=== PATIENT | female | born 1960 | race Hispanic/Latino ===

== ENCOUNTER 2016-09-15 22:15 | Emergency (ER) | payer OTHER ==
[~2016-09-15] VITALS: Ht 154.9 cm; Wt 70.3 kg
[~2016-09-15 22:15] MED LIST: ANTIVERT 25MG #1 PAC PO; CARISOPRODOL350 MG PO; CELEBREX200 MG PO; CLONAZEPAM0.5 MG PO; FIORINAL W/CODE1 CAP PO; GABAPENTIN300 MG PO; HYDROXYCHLOROQ200 M1 PO; MS CONTIN15 M1 PO; NEURONTIN300 MG PO; OXYCONTIN20 MG PO; PERCOCET 325 MG1 TA3 PO; PERCOCET 325 MG1 TAB PO; PREDNISONE 20MG20 MG PO; SYNTHROID0.137 MG PO; ZITHROMAX Z-PA250 M1 PO; ZOFRAN4 M1 SL
--- NOTE | 2016-09-16 01:14 | ED HAND/WRIST INJURY COMPLAINT ---
History of Present Illness General Chief Complaint: General Adult Stated Complaint: MULIT COMPLAINTS Source: patient Exam Limitations: no limitations Vital Signs & Intake/Output Vital Signs & Intake/Output Vital Signs Date Time Temp Pulse Resp B/P B/P Pulse O2 O2 Flow FiO2 Mean Ox Delivery Rate 09/16 0100 97.3 85 18 138/63 96 09/15 2259 98.3 99 18 141/84 99 Room Air ED Intake and Output 09/16 0000 09/15 1200 Intake Total Output Total Balance Patient 155 lb Weight Weight Reported by Patient Measurement Method Allergies Coded Allergies: NO KNOWN ALLERGIES (06/20/15) No Known Drug Allergies (06/20/15) Reconcile Medications Aspirin/Butalbital/Caffeine/ (Fiorinal W/Codeine 325 MG-50 MG-40 MG-30 MG) 1 CAP CAP 1 CAP PO PRN HEADACHE (Reported) Azithromycin (Zithromax Z-Kaiser) 250 MG CAP 1 DP PO AD SINUS 2 the first day followed by 1 for days 2-5 Carisoprodol 350 MG TABLET 1 TAB PO BID PRN PAIN (Reported) Celecoxib (Celebrex) 200 MG CAP 1 CAP PO DAILY PAIN (Reported) Clonazepam 0.5 MG TAB 1 TAB PO DAILY PRN RESTLESS LEGS (Reported) Gabapentin 300 MG CAPSULE 1 CAP PO TID NEUROPATHY (Reported) Hydroxychloroquine Sulfate 200 MG TABLET 1 TAB PO BID LUPUS (Reported) Levothyroxine Sodium (Synthroid) 0.137 MG TAB 1 TAB PO DAILY AC THYROID ( Reported) Meclizine (Antivert) 25 MG PAC 1 TAB PO Q6P PRN VERTIGO Meclizine (Antivert) 25 MG PAC 1-2 TAB PO TID PRN DIZZINESS Morphine Sulfate (Ms Contin) [address] 1 TAB PO BID PAIN (Reported) Ondansetron (Zofran Odt) 4 MG ODT 1 TAB SL TID PRN NAUSEA OXYCODONE HCL/ACETAMINOPHEN (Percocet 10-325 MG Tablet) 325 MG/10 MG TAB 1 TAB PO Q8 PRN PAIN Triage Note: PT TO TRIAGE WITH C/O SWELLING AND PAIN TO LEFT WRIST SINCE THIS MORNING. NO KNOWN INJURY. ALSO PT ON ABX FOR WOUND TO R WRIST AND REQUESTING WOUND CHECK.ALSO PT C/O BILAT LE CRAMPS SINCE THIS MORNING AND ABD PAIN AND NAUSEA SINCE YESTERDAY. DENIES CHEST PAIN,SOB,N/V/D,URINARY S/S. HX OF FYBROMIALGIA, LUPUS,HTN,HYPOTHYROID. Triage Nurses Notes Reviewed? yes HPI: Patient presents for evaluation of left wrist and left index finger pain that began upon awakening at 10:00 this morning. Patient states the pain is water to severe constant and worse with palpation and movement. There has been redness and swelling of the left index finger. Patient states that she has had a prior episode similar to this last year and was seen by an denture contour wire specialist and hand specialist. She states they felt it was secondary to fibromyalgia and ruled out carpal tunnel syndrome. In addition the patient states that she is beginning to get the similar symptoms in her right wrist and has also been getting spasms in the backs of both knees. She denies any associated fever or cold symptoms. Past medical history is pertinent for lupus, fibromyalgia, Adolph thyroiditis and Sjogren disease. In addition she also has chronic neck and back pain and has had prior spine surgery. Past History Travel History Traveled to [place] past 21 day No Medical History Any Pertinent Medical History? see below for history Neurological: NONE EENT: NONE Cardiovascular: hypertension Respiratory: NONE Gastrointestinal: NONE Hepatic: NONE Renal: NONE Musculoskeletal: fibromyalgia, BACK AND NECK SURGERY Psychiatric: NONE Endocrine: hypothyroidism, LUPUS Blood Disorders: LUPUS History of CDIFF: No Surgical History Surgical History: BACK AND NECK SURGERY Psychosocial History What is your primary language Citizen Of [place] Tobacco Use: Current Daily Use Daily Tobacco Use Amount/Type: => 5 Cigarettes daily Family History Hx Contributory? No Review of Systems Review of Systems Constitutional: Reports: no symptoms. EENTM: Reports: no symptoms. Respiratory: Reports: no symptoms. Cardiovascular: Reports: no symptoms. GI: Reports: no symptoms. Genitourinary: Reports: no symptoms. Musculoskeletal: Reports: see HPI. Skin: Reports: see HPI. Neurological/Psychological: Reports: no symptoms. Hematologic/Endocrine: Reports: no symptoms. Immunologic/Allergic: Reports: no symptoms. All Other Systems: Reviewed and Negative Physical Exam Physical Exam Hand Left: see below Hand Right: see below Comments: Gen.: Well-nourished, well-developed, no acute respiratory distress. Head: Normocephalic, atraumatic. Eyes: Normal inspection bilaterally Ears: Normal inspection bilaterally Nose: Normal inspection, nasal cannula in place Throat/mouth : Moist mucosa Neck: Supple, full range of motion, no goiter Heart: Regular rate and rhythm Lungs: Quiet respirations Back: Normal range of motion Extremities: Left hand and wrist: Erythema with mild warmth and soft tissue swelling of the left index finger (proximal middle phalanx) with tenderness to palpation and decreased range of motion. There are 2 faint areas of dark discoloration/ecchymoses over the radial aspect of the left wrist with decreased range of motion secondary to pain. Left hand is neurovascularly intact. Right hand: Normal evaluation, right wrist: Abrasion of the flexor crease (patient states she lifted an air conditioner and scratched herself a few days ago), ecchymoses of the flexor aspect of the right wrist with minimal decrease in range of motion. The right hand is neurovascularly intact. Neurologic: Cranial nerves grossly intact, speech is clear Skin: warm and dry Psychiatric: Calm, cooperative, no apparent delusions or hallucinations Progress Differential Diagnosis: cellulitis, contusion, fracture, gout, septic arthritis, sprain, tenosynovitis Plan of Care: Orders Procedure Date/time Status TOTAL TRIODOTHYROXINE 09/16 136 Complete FREE T4 09/16 136 Complete URIC ACID 09/16 113 Complete TSH REFLEX 09/16 113 Complete PROTHROMBIN TIME 09/16 113 Complete WESTERGREN SED RATE 09/16 113 Complete CBC WITHOUT DIFFERENTIAL 09/16 113 Complete BASIC METABOLIC PANEL 09/16 113 Complete Laboratory Tests 09/16/16 0137: Anion Gap 10, Estimated GFR > 60, BUN/Creatinine Ratio 15.7, Glucose 103 H, Uric Acid 3.0, Calcium 8.9, Free T4 1.66, Total T3 0.94 L, TSH &T3 &Free T4 Intrp 0.112 L, PT 11.2, INR 1.07, CBC w Diff NO MAN DIFF REQ, RBC 4.63, MCV 84.6, MCH 29.3, RDW 13.5, MPV 11.0 H, Gran % 67.3, Lymphocytes % 25.7, Monocytes % 5.8, Eosinophils % 0.9, Basophils % 0.3, Absolute Granulocytes 4.3, Absolute Lymphocytes 1.6, Absolute Monocytes 0.4, Absolute Eosinophils 0.1, Absolute Basophils 0, PUBS MCHC 34.6, ESR Westergren 6 Diagnostic Imaging: Discussed w/RAD: Radiology Read. Radiology Impression: PATIENT: BETI FAIRCHILD PRESENT AGE: 56 PATIENT ACCOUNT NO: [id number] : 61 LOCATION: [facility] ORDERING PHYSICIAN: GREG HUBER MD SERVICE DATE: 09/16/16 EXAM TYPE: RAD - XRY-HAND, LEFT; XRY-WRIST COMPLETE-LEFT EXAMINATION: 3 VIEWS OF THE LEFT HAND AND 3 VIEWS OF THE LEFT WRIST CLINICAL INFORMATION: Soft tissue swelling and tenderness of the index finger. Ecchymosis of the anterior wrist COMPARISON : None available FINDINGS: Left hand: No fracture. Bony articulations are maintained. No radiopaque foreign bodies are identified. Soft tissue swelling involving the second digit. Left wrist: No fracture. Bony articulations are maintained. No radiopaque foreign bodies. IMPRESSION: Soft tissue swelling involving the second digit. No acute osseous findings involving the left hand or the left wrist. DICTATED BY: GREG WIGGINS MD DATE/TIME DICTATED:09/16/16228 MEDICAL PHYSICS TEACHER:HOME DATE/TIME TRANSCRIBED:09/16/16228 CONFIDENTIAL, DO NOT COPY WITHOUT APPROPRIATE AUTHORIZATION. <Electronically signed in Other Vendor System> SIGNED BY: GREG WIGGINS MD 09/16/16 0236 Comments: 09/16/2016 3:46:08 AM I have updated Beti on her test results. I doubt gout given the negative uric acid level. I doubt arthritis or other significant inflammatory process given the normal white blood cell count and erythrocyte sedimentation rate. Patient is afebrile, suggesting against an acute infectious process, however, I feel be prudent given the swelling and redness to go over this patient for a possible cellulitis. She was nontender over the flexor tendon so I doubt flexor tinea synovitis. Departure Departure Disposition: HOME OR SELF CARE Condition: Stable Clinical Impression Primary Impression: Cellulitis of finger of left hand Referrals: URIEL DEMARCO MD (PCP/Family) Additional Instructions: Keflex and Bactrim as prescribed. Use the finger splint as needed. Follow-up with your primary care doctor for reevaluation within 48-72 hours. Return if any concerns or sudden worsening. Please note that there might be incidental findings in your evaluation that are unrelated to the current emergency department visit. Please notify your primary care doctor about this emergency department visit in order to obtain and review all of the testing performed so that these incidental findings can be monitored as needed. If you had an x-ray performed, please understand that some fractures may not be seen on the initial set of x-rays. If your symptoms persist you might need a repeat set of x-rays to check for such a fracture. If you had a laceration evaluated, please understand that foreign bodies such as glass or wood may not be visible to the naked eye or on plain x-rays. If the wound becomes red, swollen, increasingly more painful or if there is any drainage from the wound, please have it reevaluated by a physician for the possibility of a retained foreign body. Thank you for choosing the [facility] Emergency Department for your care. It was a pleasure to serve you today. Greg Huber M.D. [facility] Departure Forms: Customer Survey General Discharge Information Prescriptions: Current Visit Scripts Cephalexin 1 CAP PO Q6 #40 CAP Sulfamethoxazole/Trimethoprim (Bactrim Ds Tablet) 1 TAB PO BID #20 TAB
[2016-09-16 01:47] LABS: ABSOLUTE BASOPHIL COUNT 0 /CUMM (0.0-0.2); ABSOLUTE EOSINOPHIL COUNT 0.1 /CUMM (0.0-0.7); ABSOLUTE GRANULOCYTE CT 4.3 /CUMM (1.4-6.5); ABSOLUTE LYMPH COUNT 1.6 /CUMM (1.2-3.4); ABSOLUTE MONOCYTE COUNT 0.4 /CUMM (0.10-0.60); BASOPHIL % 0.3 % (0.0-2.0); EOSINOPHIL % 0.9 % (0-5); GRANULOCYTE % 67.3 % (42.2-75.2); HEMATOCRIT 39.2 % (37-47); MEAN CORPUSCULAR HGB 29.3 PG (27.0-31.0); MEAN CORPUSCULAR HGB CONC 34.6 G/DL (33.0-37.0); MEAN CORPUSCULAR VOLUME 84.6 FL (81.0-99.0); PLATELET COUNT 133 /CUMM (130-400); RBC DISTRIBUTION WIDTH 13.5 % (11.5-14.5); RED BLOOD CELL CT 4.63 /CUMM (4.20-5.40); WHITE BLOOD CELL COUNT 6.3 /CUMM (4.8-10.8)
[2016-09-16 01:52] LABS: PT 11.2 SEC (9.4-12.5)
--- NOTE | 2016-09-16 02:36 | RADIOLOGY REPORT ---
EXAMINATION: 3 VIEWS OF THE LEFT HAND AND 3 VIEWS OF THE LEFT WRIST CLINICAL INFORMATION: Soft tissue swelling and tenderness of the index finger. Ecchymosis of the anterior wrist COMPARISON: None available FINDINGS: Left hand: No fracture. Bony articulations are maintained. No radiopaque foreign bodies are identified. Soft tissue swelling involving the second digit. Left wrist: No fracture. Bony articulations are maintained. No radiopaque foreign bodies. IMPRESSION: Soft tissue swelling involving the second digit. No acute osseous findings involving the left hand or the left wrist.
[2016-09-16] MEDS ORDERED: BACTRIM DS TAB1 EACH PO (03:48)
[2016-09-16] MEDS ORDERED: CEPHALEXIN500 M3 PO (03:48)
[2016-09-16 04:07] VITALS: BP 133/74
== END 2016-09-16 04:08 ==
LOC: ERH 22:15
PROVIDERS: Emergency Medicine
DX: L03.012 Cellulitis of left finger (principal); L03.114 Cellulitis of left upper limb
CPT/HCPCS: 73110-LT; 73130-LT